=== PATIENT | male | born 1990 | race Caucasian/White ===

== ENCOUNTER → 2020-07-10 | Outpatient (CLI) | payer OTHER | LOC: OD 16:24 | PROVIDERS: ATTEND Otolaryngology | DX: J30.9 Allergic rhinitis, unspecified (principal) | CPT/HCPCS: 36415; 82785; 86003 ==

== ENCOUNTER 2020-08-01 08:02 | Day surgery (SDC) | payer OTHER ==
[~2020-08-01 08:02] MED LIST: HYDROMORPHONE HCL INJ/PF 2 MG/ML AMPULE ONE; LACTATED RINGERS 1000 ML IV PRN; LIDOCAINE 0.5% INJ-PF (5 MG/ML) 50 ML SDV SUBCUT PRN; MIDAZOLAM 2 MG/2 ML INJ ONE; PROPOFOL INJ 200 MG/20 ML VIAL IV ONE
[2020-08-01] MEDS ORDERED: SUCCINYLCHOLINE CHLORIDE INJ 200 MG/10 ML VIAL ONE (08:08)
[2020-08-01] MEDS ORDERED: DEXAMETHASONE SOD PHOSPHATE INJ 4 MG/1 ML VIAL ONE ×2 (08:08→09:09)
[2020-08-01] MEDS ORDERED: ONDANSETRON HCL INJ/PF 4 MG/2 ML SDV ONE (08:08)
[2020-08-01] MEDS ORDERED: OXYMETAZOLINE HCL 0.05% NASAL SPRAY 15 ML BOTTLE ONE (09:09)
[2020-08-01] MEDS ORDERED: BACITRACIN ZINC OINTMENT 15 GM ONE (09:09)
[2020-08-01] MEDS ORDERED: BUPIVACAINE HCL 0.5%/EPI 1:200000 INJ 1.8 ML CARTRIDGE ONE (09:09)
[2020-08-01] MEDS ORDERED: PROMETHAZINE HCL INJ 25 MG/1 ML VIAL IV PRN (09:41)
[2020-08-01] MEDS ORDERED: DIPHENHYDRAMINE HCL 50 MG/ML VIAL IV PRN (09:41)
[2020-08-01] MEDS ORDERED: MORPHINE SULFATE 10 MG/ML INJ IV PRN (09:41)
[2020-08-01] MEDS ORDERED: OXYCODONE-ACETAMINOPHEN 5-325 MG TABLET PO PRN ×3 (09:41→12:32)
[2020-08-01] MEDS ORDERED: FENTANYL CITRATE INJ/PF 100 MCG/2 ML AMPUL IV PRN ×3 (09:41)
[2020-08-01] MEDS ORDERED: MEPERIDINE HCL/PF INJ 25 MG/1 ML DISP.SYRIN IV PRN (09:41)
[2020-08-01] MEDS ORDERED: ONDANSETRON HCL INJ/PF 4 MG/2 ML SDV IV PRN ×2 (09:41→12:33)
[2020-08-01] MEDS ORDERED: OXYCODONE-ACETAMINOPHEN 5-325 MG TABLET ONE (11:22)
--- NOTE | 2020-08-01 12:24 | Operative Report ---
[facility]ative Report[facility] Operative Report: DATE OF OPERATION: August 01, 2020 PREOPERATIVE DIAGNOSIS: 1. Adenotonsillar hypertrophy 2. Obstructive sleep apnea 3. Use of a CPAP device 4. Acute recurrent tonsillitis 5. Chronic tonsillitis 6. Chronic recurrent tonsil stones 7. Excessive BMI of 50.53 POSTOPERATIVE DIAGNOSIS: 1. Adenotonsillar hypertrophy 2. Obstructive sleep apnea 3. Use of a CPAP device 4. Acute recurrent tonsillitis 5. Chronic tonsillitis 6. Chronic recurrent tonsil stones 7. Excessive BMI of 50.53 PROCEDURE: 1. Bilateral tonsillectomy patient age greater than 12 years of age 2. Adenoidectomy/adenoid surgery 3. Extra time required for positioning of the patient before, during, and at the end of the case due to excessive BMI of 50.53 Primary Surgeon of Record: Dr. Boby Cooney DEMOLITION EXPERT: None Anesthesia Staff: MINDI Epps ANESTHESIA: General Endotracheal Tube Anesthesia DRAINS: None SPONGE COUNT: Verified Needle Count: N/A SPECIMEN/MATERIALS FORWARD TO THE LAB: 1. Left and Right Tonsillar Tissue ESTIMATED BLOOD LOSS: 20 mL IV FLUIDS: 1000 mL COMPLICATIONS: None Findings: 1. The tonsils were noted to be 3-4+ in size, were endo and exophytic in nature, were highly cryptic bilateral, were with significant tonsillar debris/tonsil stones right greater than left. 2. Adenoid hypertrophy was 3-4+ with Brandee compression and extension toward the posterior choana bilateral. 3. The soft palatal tissues were sniffing only redundant in nature and the uvula was thickened and elongated in appearance. INDICATIONS: This is a 30-year-old white male patient who was seen and evaluated in the [place] [facility] office. The patient had been referred for and the patient had been referred for history of obstructive sleep apnea/ANA with the use of a CPAP breathing device and clinically known to have findings consistent with adenotonsillar hypertrophy. The patient also related a history of acute recurrent tonsillitis requiring antibiotics over the years, chronic tonsillitis with recurrent tonsil stones and history consistent with keratosis pharyngeus. The patient has desired to undergo tonsil and adenoid surgery to help his overall quality of life. After extensive discussion with the patient the recommendation and plan was to proceed with a tonsillectomy, and adenoidectomy/adenoid surgery. The procedure and all of the risks and complications were all discussed in detail with the patient. He voiced an understanding of the described surgical plan, were in agreement, and consent was obtained. DESCRIPTION OF OPERATIVE PROCEDURE: The patient was taken to the main operating room and was placed on the operating room table in the supine position. Appropriate monitors were placed. Using mask and IV access general anesthesia was induced. The patient was next transorally intubated without difficulty. The table was then rotated 90 and the patient was positioned and prepped for tonsil and adenoid surgery. The lips, teeth, tongue, and gums were inspected and noted to be without defect. The patient had a mouth gag inserted. It was opened and the patient was placed into suspension. There was a soft catheter passed through the nose that was used to suspend the soft palate. Findings are as noted above. At this point the adenoid microdebrider system at a setting of 1500 RPM was used to debulk the adenoid tissue. Next, with use of adenoid packs and suction electrocautery adequate hemostasis was achieved. The plasma J-hook device was used to dissect and remove the tonsils from the tonsillar fossae without difficulty. This was also used to provide adequate hemostasis. Normal saline irrigation was performed and was suctioned. Adequate hemostasis was noted. The soft catheter was released and removed from the patients nose. The patient was next released from suspension and the mouth gag was closed. It was opened again and there was again no bleeding noted. It was then removed from the patient's mouth without difficulty. There was no damage to the lips, teeth, tongue, or gums noted. The patient was then returned to the anesthesia staff and was allowed to emerge from general anesthesia. The patient was extubated in the operating room and was transported to the post anesthesia recovery unit in stable condition. There were no complications.
[2020-08-01 13:54] VITALS: BP 132/88
== END 2020-08-01 13:10 | disposition home or self-care (01) ==
LOC: OROUT 08:02
PROVIDERS: ATTEND Otolaryngology
DX: J35.3 Hypertrophy of tonsils with hypertrophy of adenoids (principal); J03.91 Acute recurrent tonsillitis, unspecified; J35.01 Chronic tonsillitis; G47.33 Obstructive sleep apnea (adult) (pediatric); E66.01 Morbid (severe) obesity due to excess calories; Z68.43 Body mass index [BMI] 50.0-59.9, adult; J30.9 Allergic rhinitis, unspecified; J35.8 Other chronic diseases of tonsils and adenoids; Q38.6 Other congenital malformations of mouth; R06.09 Other forms of dyspnea; J34.2 Deviated nasal septum; R06.83 Snoring; J32.9 Chronic sinusitis, unspecified; J34.3 Hypertrophy of nasal turbinates; J34.89 Other specified disorders of nose and nasal sinuses; R09.82 Postnasal drip; Z03.818 Encounter for observation for suspected exposure to other biological agents ruled out; Z79.899 Other long term (current) drug therapy; Z87.09 Personal history of other diseases of the respiratory system; Z87.891 Personal history of nicotine dependence
CPT/HCPCS: 87635; 88304 ×2; 42821; J2250; J3490 ×3; J1100; J1170; J0330; J2405; J2704; C9803